=== PATIENT | female | born 1965 | race Caucasian/White ===

== ENCOUNTER → 2018-02-10 | Outpatient (REF) | payer OTHER | LOC: M LAB REF 09:38 | DX: R30.0 Dysuria (principal) | CPT/HCPCS: 87186 ==

== ENCOUNTER 2020-01-11 12:02 | Emergency (ER) | payer OTHER ==
[~2020-01-11] VITALS: Ht 175.3 cm; Wt 128.2 kg
[2020-01-11] MEDS ORDERED: ASPI81TA26 PO (12:19)
[2020-01-11] MEDS ORDERED: CLAR10TA7 PO (12:19)
[2020-01-11] MEDS ORDERED: VITA-157 PO (12:19)
[2020-01-11] MEDS ORDERED: RAMI1CAP24 PO (12:19)
[2020-01-11] MEDS ORDERED: OMEP-218 PO (12:19)
[2020-01-11] MEDS ORDERED: VITATAB74 PO (12:19)
[2020-01-11] MEDS ORDERED: BIOT10009 PO (12:19)
[2020-01-11] MEDS ORDERED: NAPR500T6 PO (12:19)
[2020-01-11] MEDS ORDERED: CINN500C15 PO (12:19)
[2020-01-11] MEDS ORDERED: GINK60TA2 PO (12:19)
[2020-01-11] MEDS ORDERED: MORPHINE 4 MG/ML 1ML VIAL/SYRINGE (J2270) IV PRN (12:45)
[2020-01-11 14:23] LABS: BASO # 0.1 10^3/uL (0.0-0.2); BASO % 0.4 % (0.0-1.0); EOS # 0.1 10^3/uL (0.0-0.5); EOS % 0.6 % (0.0-3.0); HEMATOCRIT 41.7 % (36.0-47.0); HEMOGLOBIN 13.6 g/dl (12.0-15.5); LYMPH # 1.5 10^3/uL (1.5-5.0); LYMPH % 7.8 % (24.0-44.0); MEAN CORPUSCULAR HEMOGLOBIN 30.2 pg (27.0-33.0); MEAN CORPUSCULAR HGB CONC 32.6 g/dl (32.0-36.5); MEAN CORPUSCULAR VOLUME 92.5 fl (80.0-96.0); MONO # 1.5 10^3/uL (0.0-0.8); MONO % 8.2 % (0.0-5.0); NEUTROPHILS # 15.5 10^3/uL (1.5-8.5); NEUTROPHILS % 82.3 % (36.0-66.0); PLATELET COUNT, AUTOMATED 277 10^3/uL (150-450); RED BLOOD COUNT 4.51 10^6/uL (4.00-5.40); WHITE BLOOD COUNT 18.8 10^3/uL (4.0-10.0)
[2020-01-11 15:02] LABS: ALT/SGPT 33 U/L (12-78); BILIRUBIN,DIRECT 0.2 MG/DL (0.0-0.2); BILIRUBIN,TOTAL 0.8 MG/DL (0.2-1.0); BLOOD UREA NITROGEN 17 MG/DL (7-18); CARBON DIOXIDE LEVEL 26 MEQ/L (21-32); CHLORIDE LEVEL 105 MEQ/L (98-107); CREATININE FOR GFR 0.79 MG/DL (0.55-1.30); GLOMERULAR FILTRATION RATE > 60.0 (>51); GLUCOSE, FASTING 100 MG/DL (70-100); POTASSIUM SERUM 4.1 MEQ/L (3.5-5.1); SODIUM LEVEL 139 MEQ/L (136-145); TOTAL PROTEIN 7.1 GM/DL (6.4-8.2)
[2020-01-11] MEDS ORDERED: ISOVUE-370 76% 100ML VIAL As Ordered ONE (15:22)
--- NOTE | 2020-01-11 15:51 | REPVR ---
PROCEDURE INFORMATION: Exam: XR Right Knee Exam date and time: 01/11/2020 2:58 PM Age: 54 years old Clinical indication: Other: Trauma TECHNIQUE: Imaging protocol: XR Right knee. Views: 4 or more views. COMPARISON: No relevant prior studies available. FINDINGS: Bones/joints: No acute fracture or dislocation is identified. The medial compartment is mildly narrowed. There is a small superior patellar enthesophyte. Soft tissues: The soft tissues, including in the suprapatellar region, appear grossly unremarkable. IMPRESSION: 1. No acute fracture or dislocation identified. 2. Degenerative changes as described. Electronically signed by: Kareem Campa On 01/11/2020 15:51:11 PM
--- NOTE | 2020-01-11 15:52 | REPVR ---
PROCEDURE INFORMATION: Exam: XR Left Shoulder Exam date and time: 01/11/2020 2:58 PM Age: 54 years old Clinical indication: Other: Trauma TECHNIQUE: Imaging protocol: XR Left shoulder. Views: 2 or more views. COMPARISON: No relevant prior studies available. FINDINGS: Bones/joints: No acute fracture or dislocation is identified. Degenerative changes involve the spine. Soft tissues: The soft tissues appear grossly unremarkable. IMPRESSION: No acute fracture or dislocation identified. Electronically signed by: Kareem Campa On 01/11/2020 15:52:12 PM
--- NOTE | 2020-01-11 15:53 | REPVR ---
PROCEDURE INFORMATION: Exam: XR Left Elbow Exam date and time: 01/11/2020 2:58 PM Age: 54 years old Clinical indication: Other: Trauma TECHNIQUE: Imaging protocol: XR Left elbow. Views: 3 or more views. COMPARISON: No relevant prior studies available. FINDINGS: Bones/joints: No acute fracture or dislocation is identified. There is minor osteophyte formation along the posterior olecranon, coronoid and lateral and medial epicondyles. There is no osseous erosion or cortical destruction. Soft tissues: The fat pads are not significantly displaced. The soft tissues appear grossly unremarkable. IMPRESSION: 1. No evidence for acute fracture or dislocation. 2. Minor degenerative changes as described. Electronically signed by: Kareem Campa On 01/11/2020 15:53:35 PM
--- NOTE | 2020-01-11 15:55 | REPVR ---
PROCEDURE INFORMATION: Exam: CT Head Without Contrast Exam date and time: 01/11/2020 3:28 PM Age: 54 years old Clinical indication: Injury or trauma; Fall; Initial encounter; Blunt trauma (contusions or hematomas); Additional info: Trauma fall off ladder TECHNIQUE: Imaging protocol: Computed tomography of the head without contrast. Radiation optimization: All CT scans at this facility use at least one of these dose optimization techniques: automated exposure control; mA and/or kV adjustment per patient size (includes targeted exams where dose is matched to clinical indication); or iterative reconstruction. COMPARISON: No relevant prior studies available. FINDINGS: Brain: Normal. No hemorrhage. Unremarkable white matter. No mass effect. Ventricles: No ventriculomegaly. Bones/joints: Unremarkable. No acute fracture. Paranasal sinuses: Mild chronic mucosal disease involves the right sphenoid sinus. The visualized paranasal sinuses and air cells are otherwise clear. Mastoid air cells: Visualized mastoid air cells are well aerated. Soft tissues: Unremarkable. IMPRESSION: No CT evidence for acute intracranial abnormality. Electronically signed by: Kareem Campa On 01/11/2020 15:55:14 PM
--- NOTE | 2020-01-11 15:59 | REPVR ---
PROCEDURE INFORMATION: Exam: CT Cervical Spine Without Contrast Exam date and time: 01/11/2020 3:28 PM Age: 54 years old Clinical indication: Injury or trauma; Fall; Initial encounter; Blunt trauma TECHNIQUE: Imaging protocol: Computed tomography images of the cervical spine without contrast. Radiation optimization: All CT scans at this facility use at least one of these dose optimization techniques: automated exposure control; mA and/or kV adjustment per patient size (includes targeted exams where dose is matched to clinical indication); or iterative reconstruction. COMPARISON: No relevant prior studies available. FINDINGS: Vertebrae: Vertebral body heights are intact. Alignment is maintained. No acute fracture is identified. Discs/Spinal canal/Neural foramina: There is multilevel spondylosis with variable osteophytic encroachment of several neural foramina. CT is not optimal for the evaluation of the discs, neural foramina or spinal canal or cord. No significant spinal stenosis is evident. Soft tissues: The prevertebral soft tissues are not significantly swollen. Lungs: The visualized lung apices are clear. Pleural space: No apical pneumothorax is identified. IMPRESSION: 1. No acute fracture or dislocation identified. 2. Spondylosis without significant spinal stenosis evident. The discs and integrity of the cord could be better evaluated by means of MRI as clinically appropriate. Electronically signed by: Kareem Campa On 01/11/2020 15:59:24 PM
--- NOTE | 2020-01-11 16:08 | REPVR ---
PROCEDURE INFORMATION: Exam: CT Thoracic Spine Without Contrast Exam date and time: 01/11/2020 3:28 PM Age: 54 years old Clinical indication: Injury or trauma; Fall; Initial encounter; Blunt trauma (contusions or hematomas) TECHNIQUE: Imaging protocol: Computed tomography images of the thoracic spine without contrast. Radiation optimization: All CT scans at this facility use at least one of these dose optimization techniques: automated exposure control; mA and/or kV adjustment per patient size (includes targeted exams where dose is matched to clinical indication); or iterative reconstruction. COMPARISON: No relevant prior studies available. FINDINGS: Vertebrae: Vertebral body heights are intact. Alignment is maintained. 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 No acute fracture is identified. 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 Discs/Spinal canal/Neural foramina: There is multilevel spondylosis with variable narrowing of several neural foramina. CT is not optimal for the evaluation of the discs, neural foramina or spinal canal or cord. No significant spinal stenosis is evident. Soft tissues: There is no significant paraspinal hematoma. Other findings: Contrast is present relating to other studies being concurrently performed. IMPRESSION: 1. No acute fracture or dislocation identified. 2. Spondylosis without significant spinal stenosis evident. The discs and integrity of the cord could be better evaluated by means of MRI as clinically appropriate. COMMENTS: Dedicated chest, abdomen and pelvis CT has been performed, and findings in the soft tissues of these regions will be separately reported. Electronically signed by: Kareem Campa On 01/11/2020 16:07:43 PM
--- NOTE | 2020-01-11 16:11 | REPVR ---
PROCEDURE INFORMATION: Exam: CT Lumbar Spine Without Contrast Exam date and time: 01/11/2020 3:28 PM Age: 54 years old Clinical indication: Injury or trauma; Fall; Initial encounter; Blunt trauma (contusions or hematomas) TECHNIQUE: Imaging protocol: Computed tomography images of the lumbar spine without contrast. Radiation optimization: All CT scans at this facility use at least one of these dose optimization techniques: automated exposure control; mA and/or kV adjustment per patient size (includes targeted exams where dose is matched to clinical indication); or iterative reconstruction. COMPARISON: No relevant prior studies available. FINDINGS: Vertebrae: Vertebral body heights are intact. Alignment is maintained. No pars defect is identified. No acute fracture is identified. Discs/Spinal canal/Neural foramina: There is multilevel disc space narrowing, facet arthrosis and marginal osteophyte formation with variable narrowing of several neural foramina. CT is not optimal for the evaluation of the discs, neural foramina or spinal canal or cord. No significant spinal stenosis is evident. Soft tissues: There is no significant paraspinal hematoma. Other findings: Contrast is present relating to other studies being concurrently performed. IMPRESSION: 1. No acute fracture or dislocation identified. 2. Spondylosis without significant spinal stenosis evident. The discs, neural foramina and spinal canal could be better evaluated by means of MRI as clinically appropriate. COMMENTS: Dedicated chest, abdomen and pelvis CT has been performed, and findings in the soft tissues of these regions will be separately reported. Electronically signed by: Kareem Campa On 01/11/2020 16:10:58 PM
--- NOTE | 2020-01-11 16:19 | REPVR ---
PROCEDURE INFORMATION: Exam: CT Chest With Contrast Exam date and time: 01/11/2020 3:28 PM Age: 54 years old Clinical indication: Injury or trauma; Fall; Initial encounter; Blunt trauma (contusions or hematomas) TECHNIQUE: Imaging protocol: Computed tomography of the chest with intravenous contrast. Radiation optimization: All CT scans at this facility use at least one of these dose optimization techniques: automated exposure control; mA and/or kV adjustment per patient size (includes targeted exams where dose is matched to clinical indication); or iterative reconstruction. Contrast material: ISOVUE 370; Contrast volume: 100 ml; Contrast route: INTRAVENOUS (IV); COMPARISON: No relevant prior studies available. FINDINGS: Lungs: Mild dependent atelectasis is present bilaterally. The lungs are otherwise clear. The central airways appear patent. Pleural space: Unremarkable. No pneumothorax. No pleural effusion. Heart: Unremarkable. No cardiomegaly. No pericardial effusion. Mediastinal space: No mediastinal hematoma is identified. There is a small hiatal hernia. Aorta: The thoracic aorta is nonaneurysmal. Lymph nodes: Unremarkable. No enlarged lymph nodes. Bones/joints: Degenerative changes involve the spine and shoulders. There is probably a nondisplaced fracture extending horizontally through the anterior aspect of the mid sternum (images 203:70, 202:47, 201:44). No other acute fracture of the visualized skeleton is identified. Soft tissues: Unremarkable. IMPRESSION: Probable nondisplaced mid sternal fracture. No other evidence for acute intrathoracic injury. COMMENTS: Dedicated abdominal CT has been performed, and findings below the diaphragm will be reported separately. Electronically signed by: Kareem Campa On 01/11/2020 16:19:05 PM
--- NOTE | 2020-01-11 16:23 | REPVR ---
PROCEDURE INFORMATION: Exam: CT Abdomen And Pelvis With Contrast Exam date and time: 01/11/2020 3:28 PM Age: 54 years old Clinical indication: Injury or trauma; Fall; Initial encounter; Blunt; Generalized TECHNIQUE: Imaging protocol: Computed tomography of the abdomen and pelvis with intravenous contrast. Radiation optimization: All CT scans at this facility use at least one of these dose optimization techniques: automated exposure control; mA and/or kV adjustment per patient size (includes targeted exams where dose is matched to clinical indication); or iterative reconstruction. Contrast material: ISOVUE 370; Contrast volume: 100 ml; Contrast route: INTRAVENOUS (IV); COMPARISON: No relevant prior studies available. FINDINGS: Mediastinal space: There is a small hiatal hernia. Liver: The liver is mildly fatty in density. It appears otherwise unremarkable. Gallbladder and bile ducts: Cholecystectomy clips are present. Pancreas: Normal. No ductal dilation. Spleen: Normal. No splenomegaly. Adrenals: Normal. No mass. Kidneys and ureters: Normal. No hydronephrosis. Stomach and bowel: The unopacified small bowel is not significantly distended to suggest obstruction. Appendix: No evidence of appendicitis. Intraperitoneal space: No free air or significant free fluid. Vasculature: Unremarkable. No abdominal aortic aneurysm. Lymph nodes: Unremarkable. No enlarged lymph nodes. Bladder: Grossly unremarkable. Reproductive: There appears to be a left ovarian cyst measuring up to 2.5 cm. Bones/joints: Degenerative changes involve the spine and hips. No acute fracture of the visualized skeleton is identified. Soft tissues: A small fat containing umbilical hernia is present. IMPRESSION: 1. No evidence for acute intra-abdominal or pelvic injury. 2. Apparent left ovarian cyst measuring up to 2.5 cm. May correlate with ultrasound. 3. Small hiatal hernia. 4. Mildly fatty liver. 5. Small fat containing umbilical hernia. COMMENTS: See separate chest CT report for findings above the diaphragm. Electronically signed by: Kareem Campa On 01/11/2020 16:23:40 PM
[2020-01-11 16:54] LABS: CK-MB VALUE MASS 5.1 NG/ML (<3.6); CPK CREATINE PHOSPHOKINASE 175 U/L (26-192); MB/CK RELATIVE INDEX 2.91 (< OR =4); TROPONIN I < 0.02 NG/ML (< 0.10)
[2020-01-11] MEDS ORDERED: PERC5TAB12 PO (17:25)
[2020-01-11 17:30] VITALS: BP 134/86
[2020-01-11] MEDS ORDERED: ZOFR4TAB16 PO (18:11)
--- NOTE | 2020-01-12 13:18 | ECGEPIP ---
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
== END 2020-01-11 18:25 | disposition home or self-care (01) ==
LOC: M ED 12:02 → EDBD 12:02 → M ED 18:25
DX: S22.20XA Unspecified fracture of sternum, initial encounter for closed fracture (principal); W11.XXXA Fall on and from ladder, initial encounter; Y92.9 Unspecified place or not applicable; Y93.9 Activity, unspecified; Y99.9 Unspecified external cause status; I10 Essential (primary) hypertension; K21.9 Gastro-esophageal reflux disease without esophagitis; J30.9 Allergic rhinitis, unspecified; M47.812 Spondylosis without myelopathy or radiculopathy, cervical region; M17.11 Unilateral primary osteoarthritis, right knee; M47.816 Spondylosis without myelopathy or radiculopathy, lumbar region; Z79.82 Long term (current) use of aspirin; Z79.899 Other long term (current) drug therapy; Z88.8 Allergy status to other drugs, medicaments and biological substances
CPT/HCPCS: 70450; 71260; 72125; 72128; 72131; 73030; 73080; 73564; 74177; 80048; 80076; 82550; 82553; 84484; 85025; 93005; 93041; 94760; 96374; 99285; J2270; Q9967